=== PATIENT | female | born 1950 ===

== ENCOUNTER 2017-02-02 08:16 | Day surgery (SDC) | payer MEDICARE, OTHER ==
[2017-02-02] VITALS (10 sets, daily range): BP systolic 102–128; BP diastolic 51–59
[~2017-02-02] VITALS: Ht 160 cm; Wt 68.0 kg
[~2017-02-02 08:16] MED LIST: cefOXitin Sod 1 GM in D5W 55 ML IVPB ONE
[2017-02-02] MEDS ORDERED: LIPITOR10 MG ORAL (09:04)
[2017-02-02] MEDS ORDERED: TRAMADOL HCL50 MG ORAL (09:04)
[2017-02-02] MEDS ORDERED: ASPIR 8181 MG ORAL (09:04)
[2017-02-02] MEDS ORDERED: OMEGA 3 1,0001 EACH PO (09:04)
[2017-02-02] MEDS ORDERED: ATENOLOL25 MG ORAL (09:04)
[2017-02-02] MEDS ORDERED: KLONOPIN0.5 MG ORAL (09:04)
[2017-02-02] MEDS ORDERED: PANTOPRAZOLE SO40 MG ORAL (09:04)
[2017-02-02] MEDS ORDERED: HYDROCHLOROTHIA25 MG ORAL (09:04)
[2017-02-02] MEDS ORDERED: MELOXICAM15 MG PO (09:04)
[2017-02-02] MEDS ORDERED: QUETIAPINE FUMA50 MG ORAL (09:04)
[2017-02-02] MEDS ORDERED: LISINOPRIL20 MG ORAL (09:04)
[2017-02-02] MEDS ORDERED: VITAMIN D400 INTLU ORAL (09:04)
[2017-02-02] MEDS ORDERED: POLYETHYLENE GL17 GM ORAL (09:04)
[2017-02-02] MEDS ORDERED: ESCITALOPRAM OX10 MG ORAL (09:04)
[2017-02-02] MEDS ORDERED: cefOXitin 1gm Inj ONE (09:15)
[2017-02-02] MEDS ORDERED: Ropivacaine 5mg/ml Vial 30ml INJ ONE (09:16)
[2017-02-02] MEDS ORDERED: Propofol 200mg/20ml IV ONE (09:26)
[2017-02-02] MEDS ORDERED: NS Irrig 1000ml IRRIG ONE (09:30)
[2017-02-02] MEDS ORDERED: Sterile Water Irrig 1000ml IRRIG ONE (09:45)
[2017-02-02] MEDS ORDERED: LR 1000ml ONE (09:45)
[2017-02-02] MEDS ORDERED: NS Irrig 1000ml ONE (09:45)
[2017-02-02] MEDS ORDERED: Midazolam 2mg/2ml Inj ONE (09:45)
[2017-02-02] MEDS ORDERED: fentaNYL 100 mcg/2 mL IV ONE (09:45)
[2017-02-02] MEDS ORDERED: Ketorolac 30mg Inj ONE (09:45)
--- NOTE | 2017-02-02 09:51 | Pre-Procedure Note/Attestation ---
Pre-Procedure Note/Attestation Complete Prior to Procedure Planned Procedure: not applicable Procedure Narrative: D&C, Hysterscopy, ECC, EMC Indications for Procedure Pre-Operative Diagnosis: Uterine polyp Attestation I attest that I discussed the nature of the procedure; its benefits; risks and complications; and alternatives (and the risks and benefits of such alternatives ), prior to the procedure, with the patient (or the patient's legal arborist representative). I attest that, if there was a reasonable possibility of needing a blood transfusion, the patient (or the patient's legal arborist representative) was given the [facility] standardized written summary, pursuant to the Jay Bailee Blood Safety Act ([place] Health and Safety Code # 1645, as amended). I attest that I re-evaluated the patient just prior to the surgery and that there has been no change in the patient's H&P, except as documented below:NONE ZACH HANEY Feb 02, 2017 09:51
--- NOTE | 2017-02-02 10:10 | Brief Operative Note ---
Immediate Post Operative Note Operative Note Pre-op Diagnosis: Uterine polyp Procedure: D&C, Hysteroscopy, Polypectomy Post-op Diagnosis: same as pre-op Surgeon: Zach Haney MD Anesthesiologist: Sera Petersen MD Anesthesia: general Specimen: yes - ECC, EMC, Uterine Polyp Complications: none Condition: stable Fluids: LR@100 cc/hr Estimated Blood Loss: minimal Drains: none Implant(s) used?: No ZACH HANEY Feb 02, 2017 10:10
[2017-02-02] MEDS ORDERED: LR 1000ml 1,000 ML IVLG SCH (10:20)
--- NOTE | 2017-02-02 10:26 | Anethesia Preoperative Eval ---
Anesthesia Pre-op PMH/ROS General Date of Evaluation: Feb 02, 2017 Time of Evaluation: 09:40 Anesthesiologist: alexandre ASA Score: ASA 2 Mallampati Score Class I : Soft palate, uvula, fauces, pillars visible Class II: Soft palate, uvula, fauces visible Class III: Soft palate, base of uvula visible Class IV: Only hard plate visible Mallampati Classification: Class II Surgeon: Tatyana Diagnosis: Endometrial hyperplasia Surgical Procedure: D&C Hysteroscopy Anesthesia History: none Family History: no anesthesia problems Allergies: Coded Allergies: ATROPINE (Verified Allergy, Unknown, 01/31/17) TETRACYCLINE (Verified Allergy, Unknown, 01/31/17) Uncoded Allergies: novacaine (Allergy, Intermediate, 02/02/17) PALPITATION Medications: see eMAR Past Medical History Cardiovascular: Reports: HTN - mild, Denies: CAD, CT, valve dz, arrhythmia, other Pulmonary: Denies: asthma, COPD, YAA, other Gastrointestinal/Genitourinary: Reports: GERD - mild, Denies: CRI, ESRD, other Neurologic/Psychiatric: Denies: dementia, CVA, depression/anxiety, TIA, other Endocrine: Denies: DM, hypothyroidism, steroids, other HEENT: Denies: cataract (L), cataract (R), glaucoma, YOCHA DEHE (L), YOCHA DEHE (R), other Hematology/Immune: Denies: anemia, DVT, bleeding disorder, other Musculoskeletal/Integumentary: Reports: DJD, Denies: OA, RA, DDD, edema, other PMH Narrative: as above PSxH Narrative: Cholecystectomy open Anesthesia Pre-op Phys. Exam Physician Exam Last Vital Signs Date Time Temp Pulse Resp B/P (MAP) Pulse Ox O2 Delivery O2 Flow Rate FiO2 02/02/17 09:12 97.7 48 20 98 Room Air Constitutional: NAD Neurologic: CN 2-12 intact Cardiovascular: RRR, no M/R/G Respiratory: CTA Gastrointestinal: S/NT/ND Airway Exam Mallampati Score: Class II MO: full Neck: flexible ROM: limited Teeth: intact Dentures: no upper, no lower Anesthesia Pre-op A/P Labs see chart Studies Pre-op Studies: EKG - NSR Risk Assessment & Plan Assessment: Asa 2 Plan: ga WITH lma Status Change Before Surgery: No Pre-Antibiotics Drug: Cefoxitin 1 gr. Given Within 1 Hr of Incision: Yes Time Given: 08:02 GENEVIEVE CONRAD M.D. Feb 02, 2017 10:26
[2017-02-02] MEDS ORDERED: HYDROmorphone 1mg/ml Carpuject SUBQ PRN (10:30)
[2017-02-02] MEDS ORDERED: DiphenhydrAMINE 50mg/ml Inj IVP PRN (10:30)
[2017-02-02] MEDS ORDERED: Hydromorphone 0.5mg/0.5ml inj IVP PRN (10:30)
[2017-02-02] MEDS ORDERED: Metoclopramide 10mg/2ml Inj IVP PRN (10:30)
[2017-02-02] MEDS ORDERED: Tylenol #3 tab (300mg/30mg) ORAL PRN (10:30)
[2017-02-02] MEDS ORDERED: Ketorolac 30mg Inj IV PRN (10:30)
[2017-02-02] MEDS ORDERED: Norco 5mg/325mg tab ORAL PRN (10:30)
[2017-02-02] MEDS ORDERED: Midazolam 2mg/2ml Inj IVP PRN (10:30)
--- NOTE | 2017-02-02 10:54 | Immediate Post-Op Evaluation ---
Immediate Post-Op Evalulation Immediate Post-Op Evalulation Procedure: D&C Hysteroscopy polypectomy Date of Evaluation: Feb 02, 2017 Time of Evaluation: 10:53 IV Fluids: 800 Blood Products: none Estimated Blood Loss: min Urinary Output: 100 Blood Pressure Systolic: 128 Blood Pressure Diastolic: 63 Pulse Rate: 54 Respiratory Rate: 20 O2 Sat by Pulse Oximetry: 99 Temperature (Fahrenheit): 97.6 Pain Score (1-10): 2 Nausea: No Vomiting: No Complications none Patient Status: reacts, patent, none Hydration Status: adequate GENEVIEVE CONRAD M.D. Feb 02, 2017 10:54
[2017-02-02] MEDS ORDERED: D5 1/2NS 1,000 ML IV SCH (12:00)
--- NOTE | 2017-02-02 14:38 | 48 Hour Post Anesthesia Eval ---
Post Anesthesia Evaluation Procedure: D&C Hysteroscopy polypectomy Date of Evaluation: Feb 02, 2017 Time of Evaluation: 14:37 Blood Pressure Systolic: 128 0: 59 Pulse Rate: 62 Respiratory Rate: 20 Temperature (Fahrenheit): 97.6 O2 Sat by Pulse Oximetry: 99 Airway: patent Nausea: No Vomiting: No Pain Intensity: 2 Hydration Status: adequate Cardiopulmonary Status: stable Mental Status/LOC: patient returned to baseline Follow-up Care/Observations: n/a Post-Anesthesia Complications: none Follow-up care needed: ready to discharge GENEVIEVE CONRAD M.D. Feb 02, 2017 14:38
--- NOTE | 2017-02-09 23:16 | Operative Note - Dictated ---
DATE OF OPERATION: PREOPERATIVE DIAGNOSES: 1. Endometrial thickening. 2. Probable endometrial polyp. POSTOPERATIVE DIAGNOSES: 1. Endometrial thickening. 2. Probable endometrial polyp. PROCEDURE PERFORMED: 1. Video hysteroscopy with endocervical curettage and endometrial curettage. 2. Uterine polypectomy. SURGEON: Danny Joe M.D. CAR RENTAL MANAGER: None. ANESTHESIOLOGIST: Pierre Petersen M.D. ANESTHESIA: General PROCEDURE IN DETAIL: After all the appropriate consents were signed, the patient was brought to the operating room, placed on the table in supine position. General anesthesia was induced without complication. The patient was then placed in a dorsal lithotomy position. Perineum, vagina, and abdomen prepped and draped in the usual fashion for the procedure. The patient was examined under anesthesia. The cervix was identified and dilated. Video hysteroscope was introduced and hysteroscopy revealed the endometrial cavity with the very large endometrial polyp. The rest of the cavity appeared to be within normal limits. At this time, the cervical os was further dilated to introduce polyp forceps and with direct visualization the polyp was grasped and removed using a traction countertraction technique. The procedure then continued with once again revisualization of the endometrial cavity. Prior to removal of the cavity, endocervical curettage was performed. After removal of the polyp, endometrial curettage was performed. All three specimens were submitted to pathology for evaluation. At this time, uterine cavity once again reevaluated and there did not appear to be any additional endometrial polyps or submucosal fibroids. The procedure then continued with removal of the instruments from the vagina. The cervix was found to be completely hemostatic. The patient was placed in the supine position and awakened from general anesthesia. She was transferred to the recovery room in excellent condition. Danny Joe M.D. DR: Gracie JOB#: [id number] CC: [email or web address]
== END 2017-02-02 12:55 | disposition home or self-care (01) ==
LOC: SUR 08:16
DX: N84.0 Polyp of corpus uteri (principal); R93.8 Abnormal findings on diagnostic imaging of other specified body structures; I10 Essential (primary) hypertension; M19.90 Unspecified osteoarthritis, unspecified site; K21.9 Gastro-esophageal reflux disease without esophagitis; Z88.8 Allergy status to other drugs, medicaments and biological substances; Z90.49 Acquired absence of other specified parts of digestive tract; K29.70 Gastritis, unspecified, without bleeding
CPT/HCPCS: 58558; J0694; J1885; J2250; J2405; J2704; J3010; J7120; 94003; 94150